=== PATIENT | male | born 1950 | race Caucasian/White ===

== ENCOUNTER → 2016-09-19 | Outpatient (CLI) | payer MEDICARE, OTHER ==
[~2016-09-19] MED LIST: CLR500T; CTLP20T PO; ESCT10T; HYDR-3583 PO; PHEN-452 PO; PHENTERAMINE; PNT40TEC PO; TMSL.4C PO
--- NOTE | 2016-09-19 13:56 | Diagnostic Imaging Report ---
EXAMINATION: Left lower extremity duplex venous ultrasound. TECHNIQUE: DVT protocol. Multiple sonographic images with color Doppler and waveform interrogation were performed of the left lower extremity veins with compression and augmentation maneuvers. INDICATION: Left leg pain. FINDINGS: The left lower extremity veins from the groin to below the knee veins were examined with normal color-flow, compressibility and waveform demonstrated. The great saphenous vein is patent. IMPRESSION: No evidence of DVT in the left lower extremity. Dictated by: Dictated on workstation # [id number]
--- NOTE | 2016-09-19 14:30 | Diagnostic Imaging Report ---
2 views of the left tibia and fibula. INDICATION: Left leg pain. Findings: There is no fracture, dislocation or radiopaque foreign body. No focal osseous mass is identified. Mild degenerative changes are suggested in the knee. This can be better evaluated with dedicated knee exam. Impression: No acute process. Dictated by: Dictated on workstation # [id number]
== END ==
LOC: RAD 12:29
PROVIDERS: ATTEND Family Medicine
DX: M79.605 Pain in left leg (principal)
CPT/HCPCS: 73590

== ENCOUNTER → 2018-07-22 | Outpatient (CLI) | payer MEDICARE, OTHER ==
[~2018-07-22] VITALS: Ht 180.3 cm; Wt 128.5 kg
[~2018-07-22] MED LIST changes: +NS IV 1000 ML 1,000 ML IV ONE; +NS IV 1000 ML 1,000 ML ONE; +ONDANSETRON 4 MG/2 ML (SDV) Z0FRAN IV PRN
[2018-07-22 15:27] LABS: BASOPHILS % (AUTO) 0 % (0-10); EOSINOPHILS # (AUTO) 0.2 10^3/uL (0.0-0.3); EOSINOPHILS % (AUTO) 5 % (0-10); HEMATOCRIT 45 % (40-54); HEMOGLOBIN 14.9 G/DL (13.3-17.7); LYMPHOCYTES # (AUTO) 1.7 X 10^3 (1.0-4.0); LYMPHOCYTES % (AUTO) 38 % (12-44); MEAN CORPUSCULAR HEMOGLOBIN 28 PG (25-34); MEAN CORPUSCULAR HGB CONC 33 G/DL (32-36); MEAN CORPUSCULAR VOLUME 84 FL (80-99); MONOCYTES # (AUTO) 0.4 X 10^3 (0.0-1.0); MONOCYTES % (AUTO) 8 % (0-12); NEUTROPHILS # (AUTO) 2.3 X 10^3 (1.8-7.8); NEUTROPHILS % (AUTO) 50 % (42-75); PLATELET COUNT 171 10^3/uL (130-400); RED CELL DISTRIBUTION WIDTH 14.2 % (10.0-14.5); WHITE BLOOD COUNT 4.6 10^3/uL (4.3-11.0)
[2018-07-22 15:28] VITALS: BP 139/90
[2018-07-22 15:29] LABS: BILIRUBIN,URINE NEGATIVE (NEGATIVE); CLARITY,URINE SLIGHTLY CLOUDY; COLOR,URINE YELLOW; GLUCOSE, URINE (UA) NEGATIVE (NEGATIVE); KETONES,URINE NEGATIVE (NEGATIVE); LEUKOCYTE ESTERASE ,URINE NEGATIVE (NEGATIVE); NITRITE,URINE NEGATIVE (NEGATIVE); PH,URINE 7 (5-9); PROTEIN,URINE NEGATIVE (NEGATIVE); UROBILINOGEN,URINE NORMAL (NORMAL)
[2018-07-22 15:40] LABS: BACTERIA,URINE NEGATIVE /HPF; SQUAMOUS EPITHELIAL CELL,UR RARE /HPF; WBC,URINE RARE /HPF
[2018-07-22 15:47] LABS: ALANINE AMINOTRANSFERASE 29 U/L (0-55); ALBUMIN 4.1 GM/DL (3.2-4.5); ALKALINE PHOSPHATASE 64 U/L (40-136); BILIRUBIN,TOTAL 0.2 MG/DL (0.1-1.0); BUN/CREATININE RATIO 19; CARBON DIOXIDE 26 MMOL/L (21-32); CHLORIDE 108 MMOL/L (98-107); CREATININE SERUM 0.99 MG/DL (0.60-1.30); GFR ESTIMATED > 60; GLUCOSE 117 MG/DL (70-105); POTASSIUM 4.2 MMOL/L (3.6-5.0); SODIUM 142 MMOL/L (135-145); TOTAL PROTEIN 6.6 GM/DL (6.4-8.2)
[2018-07-22 16:22] VITALS: BP 139/90
== END ==
LOC: SDC 14:47
PROVIDERS: ATTEND Family Medicine
DX: E86.0 Dehydration (principal); R00.0 Tachycardia, unspecified; R00.2 Palpitations; R73.9 Hyperglycemia, unspecified
CPT/HCPCS: 36415; 80053; 81000; 83036; 85025; 96360

== ENCOUNTER 2018-08-01 09:58 | Outpatient (RCR) | payer MEDICARE, OTHER ==
[~2018-08-01 09:58] MED LIST changes: -NS IV 1000 ML 1,000 ML IV ONE; -NS IV 1000 ML 1,000 ML ONE; -ONDANSETRON 4 MG/2 ML (SDV) Z0FRAN IV PRN
== END 2018-10-30 | disposition home or self-care (01) ==
LOC: CARD 09:58
PROVIDERS: ATTEND Nurse Practitioner Family
DX: R00.0 Tachycardia, unspecified (principal)
CPT/HCPCS: 93225; 93226

== ENCOUNTER → 2019-11-14 | Outpatient (CLI) | payer MEDICARE, OTHER ==
--- NOTE | 2019-11-14 15:26 | Diagnostic Imaging Report ---
PROCEDURE: CT chest without contrast. TECHNIQUE: Multiple contiguous axial images were obtained through the chest without the use of intravenous contrast. Auto Exposure Controls were utilized during the CT exam to meet ALARA standards for radiation dose reduction. INDICATION: Chronic cough. COMPARISON: None available. FINDINGS: No significant adenopathy within the chest. Mild scattered vascular calcifications. No aneurysmal dilatation of the thoracic aorta. The heart is within normal limits in size. No pericardial effusion. No pleural effusion. No pneumothorax. Moderate background centrilobular emphysematous changes are noted. Minimal bibasilar scarring and/or atelectasis. The lungs are otherwise clear of focal pulmonary opacity. The trachea is patent. Multiple hypodensities are identified scattered throughout the liver. Additionally, the liver appears diffusely hypodense. The visualized upper abdomen is otherwise unremarkable. No acute osseous abnormality. IMPRESSION: 1. Moderate background emphysematous changes. 2. Diffusely decreased density of the liver with associated multiple focal hypodensities. Although this is favored to relate to fatty infiltration of the liver with several hepatic cysts, other etiologies, including mass lesions not excluded. Therefore, recommend hepatic ultrasound versus CT of the abdomen with and without contrast for further evaluation. Dictated by: Dictated on workstation # [id number]
--- NOTE | 2019-11-14 18:37 | Diagnostic Imaging Report ---
INDICATION: Low back pain x1 year. TECHNIQUE: AP, lateral, and spot imaging of the lumbar spine. CORRELATION STUDY: None. FINDINGS: Trace anterolisthesis of L4 on L5. Otherwise straightening of normal lumbar lordosis. There is slight asymmetric loss of height and anterior wedging of L1 vertebral body. There is slight asymmetric loss of height along the left aspect of L1 and L2. Prominent endplate spurring is noted along the left aspect at the L1-L2 level. Various degrees of disc space narrowing but most severe at the L5-S1, L2-L3, L1-L2, and to lesser degree L3-L4 levels. Various degrees of hypertrophic facet arthropathy, again most pronounced at the L5-S1 and to a lesser degree L4-L5 and L3-L4 levels. SI joints without significant sclerosis or destructive change. IMPRESSION: No radiographic evidence for acute bony abnormality of the lumbar spine. Advanced multilevel lumbar spondylosis. Dictated by: Dictated on workstation # [id number]
== END ==
LOC: RAD 14:11
PROVIDERS: ATTEND Family Medicine
DX: J43.9 Emphysema, unspecified (principal); M47.816 Spondylosis without myelopathy or radiculopathy, lumbar region; K76.89 Other specified diseases of liver; Z87.891 Personal history of nicotine dependence
CPT/HCPCS: 71250; 72100

== ENCOUNTER → 2019-11-25 | Outpatient (CLI) | payer MEDICARE, OTHER ==
--- NOTE | 2019-11-25 08:45 | Diagnostic Imaging Report ---
PROCEDURE: US Thyroid. TECHNIQUE: Multiple Real-time grayscale images were obtained of the thyroid in various projections. INDICATION: Abnormal thyroid labs. COMPARISON: There are no prior thyroid ultrasound examinations available for comparison. The thyroid, where visualized, on the CT chest exam of 11/14/2019 failed to show any abnormality. FINDINGS: The thyroid gland is borderline enlarged with the right lobe measuring 5.4 x 1.9 x 2.5 cm and the left lobe estimated to be 4.4 x 2.0 x 2.1 cm (normal gland size 4-5 x 2 x 2 cm or less). The thyroid gland, however, appears fairly homogeneous. There is no focal solid or cystic lesion identified. IMPRESSION: The thyroid gland is borderline enlarged but there is no discrete solid or cystic nodule within either lobe. Dictated by: Dictated on workstation # [id number]
--- NOTE | 2019-11-25 08:46 | Diagnostic Imaging Report ---
PROCEDURE: US Hepatic (Liver). TECHNIQUE: Multiple real-time grayscale images were obtained over the right upper quadrant in various projections. INDICATION: Abnormal CT exam There are no prior liver ultrasound examinations available for comparison. The CT chest exam performed on 11/14/2019 noted diffusely decreased density of the liver with associated multiple focal hypodensities. These findings are felt related to fatty metamorphosis with several hepatic cysts. This study was technically difficult due to the patient's body habitus. The liver is borderline enlarged measuring approximately 20 cm in length. The liver is of slightly greater echogenicity than usually seen and this does suggest fatty metamorphosis. Furthermore there do appear to be several hypoechoic somewhat lobulated structures within the liver. The largest of these is in the right lobe near the dome of the liver and measures 3.2 x 2.2 x 2.3 cm. All these findings are similar in appearance and I do suspect that they are related to cysts. There is no solid mass to suggest malignancy. The biliary tree is not abnormally dilated. Spectral color-flow imaging of the portal vein shows that the vein is patent and there is normal directional flow within the vein. There is no evidence for cholelithiasis or acute cholecystitis. The common bile duct is at the upper limits of normal. The right kidney is unremarkable. The pancreas, the aorta and inferior vena cava were obscured by bowel gas. IMPRESSION: 1. There is borderline hepatomegaly and the echogenic appearance of the liver does suggest fatty metamorphosis. There also appear to be several cysts within the liver. There is no solid mass involving the liver to suggest malignancy however. 2. There is no evidence for cholelithiasis or acute cholecystitis. Dictated by: Dictated on workstation # [id number]
== END ==
LOC: RAD 07:16
PROVIDERS: ATTEND Family Medicine
DX: E04.9 Nontoxic goiter, unspecified (principal); K76.89 Other specified diseases of liver; R16.0 Hepatomegaly, not elsewhere classified
CPT/HCPCS: 76536; 76705

== ENCOUNTER → 2020-04-06 | Outpatient (CLI) | payer MEDICARE, OTHER ==
[2020-04-06 15:17] LABS: BASOPHILS % (AUTO) 1 % (0-10); EOSINOPHILS # (AUTO) 0.2 10^3/uL (0.0-0.3); EOSINOPHILS % (AUTO) 3 % (0-10); HEMATOCRIT 48 % (40-54); HEMOGLOBIN 15.5 g/dL (13.3-17.7); LYMPHOCYTES # (AUTO) 2.1 10^3/uL (1.0-4.0); LYMPHOCYTES % (AUTO) 33 % (12-44); MEAN CORPUSCULAR HEMOGLOBIN 27 pg (25-34); MEAN CORPUSCULAR HGB CONC 32 g/dL (32-36); MEAN CORPUSCULAR VOLUME 85 fL (80-99); MEAN PLATELET VOLUME 9.9 fL (9.0-12.2); MONOCYTES # (AUTO) 0.5 10^3/uL (0.0-1.0); MONOCYTES % (AUTO) 7 % (0-12); NEUTROPHILS # (AUTO) 3.6 10^3/uL (1.8-7.8); NEUTROPHILS % (AUTO) 57 % (42-75); PLATELET COUNT 166 10^3/uL (130-400); WHITE BLOOD COUNT 6.4 10^3/uL (4.3-11.0)
[2020-04-06 15:31] LABS: CHLORIDE 108 MMOL/L (98-107); POTASSIUM 4.2 MMOL/L (3.6-5.0); SODIUM 139 MMOL/L (135-145)
[2020-04-06 15:32] LABS: CALCIUM 10.2 MG/DL (8.5-10.1)
[2020-04-06 15:33] LABS: GLUCOSE 108 MG/DL (70-105); TOTAL PROTEIN 6.5 GM/DL (6.4-8.2)
[2020-04-06 15:34] LABS: CARBON DIOXIDE 22 MMOL/L (21-32)
[2020-04-06 15:35] LABS: BILIRUBIN,TOTAL 0.3 MG/DL (0.1-1.0)
[2020-04-06 15:36] LABS: ALKALINE PHOSPHATASE 58 U/L (40-136)
[2020-04-06 15:37] LABS: CREATININE SERUM 0.84 MG/DL (0.60-1.30); GFR ESTIMATED > 60
[2020-04-06 15:38] LABS: BUN/CREATININE RATIO 23
[2020-04-06 15:40] LABS: ALANINE AMINOTRANSFERASE 33 U/L (0-55)
== END ==
LOC: CARD 14:47
PROVIDERS: ATTEND Nurse Practitioner Family
DX: R00.2 Palpitations (principal)
CPT/HCPCS: 36415; 80053; 84484; 85025; 93005

== ENCOUNTER → 2020-04-21 | Outpatient (CLI) | payer MEDICARE, OTHER ==
[2020-04-21 12:02] LABS: ALANINE AMINOTRANSFERASE 28 U/L (0-55); ALBUMIN 4.2 GM/DL (3.2-4.5); ALKALINE PHOSPHATASE 58 U/L (40-136); BILIRUBIN,TOTAL 0.4 MG/DL (0.1-1.0); BUN/CREATININE RATIO 17; CALCIUM 9.9 MG/DL (8.5-10.1); CARBON DIOXIDE 23 MMOL/L (21-32); CHLORIDE 108 MMOL/L (98-107); CREATININE SERUM 0.88 MG/DL (0.60-1.30); GFR ESTIMATED > 60; GLUCOSE 98 MG/DL (70-105); POTASSIUM 4.2 MMOL/L (3.6-5.0); SODIUM 139 MMOL/L (135-145); TOTAL PROTEIN 6.8 GM/DL (6.4-8.2)
== END ==
LOC: LAB 11:22
PROVIDERS: ATTEND Family Medicine
DX: E83.52 Hypercalcemia (principal)
CPT/HCPCS: 36415; 80053

== ENCOUNTER → 2021-05-12 | Outpatient (CLI) | payer MEDICARE, OTHER ==
--- NOTE | 2021-05-12 14:51 | Diagnostic Imaging Report ---
PROCEDURE: US Renal Bilateral. TECHNIQUE: Multiple real-time grayscale images were obtained over the kidneys in various projections bilaterally. INDICATION: BPH. Right kidney measures 13.0 x 6.7 x 5.9 cm, left kidney measures 12.9 x 6.3 x 5.7 cm. Kidneys show normal cortical thickness and echogenicity. No calculi are seen. There is no hydronephrosis. Prevoid bladder volume is 220 mL. Postvoid volume is 78 mL. IMPRESSION: Postvoid residual volume. The study is otherwise unremarkable. Dictated by: Dictated on workstation # [id number]
== END ==
LOC: RAD 12:45
PROVIDERS: ATTEND Nurse Practitioner Family
DX: N40.1 Benign prostatic hyperplasia with lower urinary tract symptoms (principal)
CPT/HCPCS: 76770

== ENCOUNTER → 2021-10-06 | Outpatient (CLI) | payer MEDICARE, OTHER ==
--- NOTE | 2021-10-06 13:47 | Diagnostic Imaging Report ---
INDICATION: Low back pain. TIME OF EXAM: 1:26 p.m. COMPARISON: Correlation is made with prior radiograph from 11/14/2019. FINDINGS: Slight left convexity lumbar scoliotic curvature is noted. There is normal lordotic curvature. Lateral view demonstrates vertebral body heights to be maintained. No acute compression fracture is seen. There is multilevel degenerative disc disease with variable disc space narrowing and marginal spurring, greatest at L1-L2, L2-L3, and L5-S1 levels. Flexion and extension lateral views were also performed. No definite motion is identified during flexion and extension maneuvers. Abdominal aorta does show atherosclerotic calcifications. IMPRESSION: Lumbar spondylosis. No acute compression fracture is seen. No definite motion is identified during flexion or extension maneuvers. Dictated by: Dictated on workstation # [id number]
== END ==
LOC: RAD 13:07
PROVIDERS: ATTEND Neurological Surgery
DX: M47.816 Spondylosis without myelopathy or radiculopathy, lumbar region (principal); M51.36 Other intervertebral disc degeneration, lumbar region; M48.061 Spinal stenosis, lumbar region without neurogenic claudication
CPT/HCPCS: 72110

== ENCOUNTER → 2022-06-07 | Outpatient (CLI) | payer MEDICARE, OTHER ==
--- NOTE | 2022-06-07 16:48 | Diagnostic Imaging Report ---
EXAMINATION: Right hip unilateral 2 or 3 views (w/pelvis when done) HISTORY: Hip pain. COMPARISON: None available. FINDINGS: There is severe right hip osteoarthritis. No acute fracture is seen. No dislocation. IMPRESSION: 1. Severe right hip osteoarthritis. Dictated by: Dictated on workstation # [id number]
== END ==
LOC: RAD 11:05
PROVIDERS: ATTEND Nurse Practitioner Family
DX: M16.11 Unilateral primary osteoarthritis, right hip (principal)
CPT/HCPCS: 73502